=== PATIENT | female | born 1940 | race Two or more races ===

== ENCOUNTER 2016-09-07 23:40 | Emergency (ER) | payer OTHER ==
[~2016-09-07] VITALS: Ht 157.5 cm; Wt 72.6 kg
[2016-09-07 23:58] VITALS: BP 110/86
--- NOTE | 2016-09-08 00:08 | Emergency Room Report ---
History of Present Illness General Chief Complaint: Dyspnea/Respdistress Source: Patient Present Illness HPI This is a 75-year-old female with history of diabetes, hypertension, and a touch of COPD. She presents with increasing shortness of breath the last few days. Worse tonight. Worse with exertion. Better with rest and treatment. Denies any fever chills denies any chest pain. No nausea or vomiting. No chest pain. [place] better after breathing treatment by EMS. Allergies: Coded Allergies: PENICILLINS (Verified Allergy, Unknown, 09/07/16) Patient History Past Medical History: see triage record, old chart reviewed, DM, HTN, asthma Past Surgical History: other Pertinent Family History: none Social History: Denies: smoking Now: No Immunizations: other Reviewed Nursing Documentation: PMH: Agreed, PSxH: Agreed Nursing Documentation-PMH Hx Hypertension: Yes Hx COPD: Yes Hx Diabetes: Yes Review of Systems Eye: Denies: blurred vision, eye pain ENT: Denies: ear pain, nose congestion, throat swelling Respiratory: Reports: shortness of breath, wheezing, Denies: cough Cardiovascular: Denies: chest pain, palpitations Gastrointestinal: Denies: abdominal pain, diarrhea, nausea, vomiting Musculoskeletal: Denies: back pain, joint pain Skin: Denies: rash Neurological: Denies: headache, numbness Endocrine: Denies: increased thirst, increased urine Hematologic/Lymphatic: Denies: easy bruising All Other Systems: negative except mentioned in HPI Physical Exam Vital Signs Date Time Temp Pulse Resp B/P Pulse Ox O2 Delivery O2 Flow Rate FiO2 09/07/16 23:44 98.4 112 28 110/86 100 Simple Mask 6.0 vitals with hypertension Sp02 EP Interpretation: abnormal General Appearance: moderate distress Head: normocephalic, atraumatic Eyes: bilateral eye EOMI, bilateral eye PERRL ENT: hearing grossly normal, normal pharynx Neck: full range of motion, supple, no meningismus Respiratory: chest non-tender, decreased breath sounds, accessory muscle use, rales, wheezing Cardiovascular #1: regular rate, rhythm, no murmur Gastrointestinal: normal bowel sounds, non tender, no mass, no organomegaly, no bruit, non-distended Musculoskeletal: back normal, normal range of motion, swelling - One plus edema Neurologic: alert, oriented x3 Psychiatric: mood/affect normal Skin: warm/dry Medical Decision Making Diagnostic Impression: Primary Impression: Acute respiratory failure with hypoxia Additional Impressions: Acute exacerbation of CHF (congestive heart failure) Qualified Codes: I50.9 - Heart failure, unspecified UTI (urinary tract infection) Qualified Codes: N30.00 - Acute cystitis without hematuria Hyperglycemia due to type 2 diabetes mellitus Qualified Codes: E11.65 - Type 2 diabetes mellitus with hyperglycemia Proteinuria ER Course This patient presents with respiratory distress. She has pulmonary edema and CHF. Never had this problem before. For said her troponin negative. No evidence of PE or pneumonia. No dissection. Patient felt better after Lasix. She diuresed well. Her insurance unable to transfer her in a timely manner. We will admit her here. She will be admitted under the service of Dr. Abarca, who is the hospitalist for [facility]. Dr. Francois is covering for him. Dr. Wall is covering for Dr. Francois. Lab Results Impression labs unremarkable EKG Diagnostic Results Rate: normal, tachycardiac Rhythm: NSR ST Segments: no acute changes Rhythm Strip Diag. Results EP Interpretation: yes Rate: 83 Rhythm: NSR, no PVC's, no ectopy Chest X-Ray Diagnostic Results EP Interpretation: Yes Findings: no consolidation, no effusion, no pneumothorax, other - CHF Number of Views: 1 CT/MRI/US Diagnostic Results CT/MRI/US Diagnostic Results : Imaging Test Ordered: CT chest Impression read by radiologist. Cardiomegaly. Small bilateral pleural effusion. Pulmonary edema. Last Vital Signs Date Time Temp Pulse Resp B/P Pulse Ox O2 Delivery O2 Flow Rate FiO2 09/07/16 23:58 98.4 100 24 110/86 99 Simple Mask 6.0 AGNES TUCKER M.D. Sep 08, 2016 00:08
[2016-09-08] MEDS ORDERED: Albuterol ud Inhalation HHN ONE (00:15)
[2016-09-08] MEDS ORDERED: Solu-MEDROL 125mg Inj IVP ONE (00:15)
[2016-09-08] MEDS ORDERED: Ipratropium 0.02% Inh Soln 2.5ml UD HHN ONE (00:15)
[2016-09-08 00:19] LABS: EOSINOPHILS % (AUTO) 2.4 % (0.0-3.0); LYMPHOCYTES % (AUTO) 23.5 % (20.0-45.0); MEAN CORPUSCULAR HGB CONC 31.4 G/DL (32.0-36.0); MEAN CORPUSCULAR VOLUME 80 FL (80-99); MONOCYTES % (AUTO) 7.2 % (1.0-10.0); NEUTROPHILS % (AUTO) 65.9 % (45.0-75.0); PLATELET COUNT 247 K/UL (150-450); RED BLOOD COUNT 5.27 M/UL (4.20-5.40); RED CELL DISTRIBUTION WIDTH 16.7 % (11.6-14.8); WHITE BLOOD COUNT 15.3 K/UL (4.8-10.8)
[2016-09-08 00:33] LABS: PROTHROMBIN TIME 10.2 SEC (9.30-11.50)
[2016-09-08 00:36] LABS: TROPONIN I < 0.30 ng/mL (<=0.30)
[2016-09-08 00:37] LABS: ALANINE AMINOTRANSFERASE 70 U/L (3-33); ALBUMIN/GLOBULIN RATIO 1.1 (1.0-2.7); ANION GAP 15 (5-15); ASPARTATE AMINO TRANSFERASE 66 U/L (5-40); CALCIUM 9.4 mg/dL (8.6-10.2); CARBON DIOXIDE 26 mEQ/L (20-30); CHLORIDE 106 mEQ/L (98-107); CREATININE 0.9 mg/dL (0.5-0.9); HEMOLYSIS 22; POTASSIUM 3.6 mEQ/L (3.4-4.9); SODIUM 147 mEQ/L (135-145); TOTAL PROTEIN 7.9 g/dL (6.6-8.7)
[2016-09-08 00:47] VITALS: BP 131/51
[2016-09-08 01:09] LABS: APPEARANCE,URINE CLEAR; KETONES,URINE NEGATIVE (NEGATIVE); LEUKOCYTE ESTERASE ,URINE 2+ (NEGATIVE); NITRITE,URINE NEGATIVE (NEGATIVE); PH,URINE 7 (4.5-8.0); PROTEIN,URINE 2+ (NEGATIVE); UROBILINOGEN,URINE NORMAL MG/DL (0.0-1.0)
[2016-09-08 02:26] LABS: BACTERIA,URINE OCCASIONAL /HPF; RBC,URINE 0-2 /HPF (0 - 2); SQUAMOUS EPITHELIAL CELL,UR OCCASIONAL /LPF (NONE/OCC)
[2016-09-08 02:45] LABS: BILIRUBIN,DIRECT 0.3 mg/dL (0.1-0.3); CKMB 2.2 ng/mL (< 3.8)
[2016-09-08 03:00] VITALS: BP 120/47
[2016-09-08] MEDS ORDERED: cefTRIAXone 1 GM in NS 55 ML IVPB ONE (03:00)
[2016-09-08 04:53] VITALS: BP 128/51
[2016-09-08 07:00] VITALS: BP 120/60
[2016-09-08 08:27] VITALS: BP 120/60
--- NOTE | 2016-09-09 12:38 | Cardiology Report ---
APPROVED REPORT EKG Measurement Heart [id number] Normal sinus rhythm Nonspecific ST and T wave abnormality Abnormal ECG
--- NOTE | 2016-09-10 14:06 | Diagnostic Imaging Report ---
Indication: Chest pain Technique: Continuous helical transaxial imaging of the chest was obtained from the thoracic inlet to the upper abdomen during rapid intravenous contrast administration. Arterial phase of enhancement obtained. Coronal 2-D reformats were also obtained and maximum intensity projection images in multiple planes. Study obtained in a Siemens sensation [address] Total Dose length Product (DLP): [address] Dose Index Volume (CTDIvol): 34 mGy Comparison: None Findings: Pulmonary artery is not opacified well enough on this study to exclude pulmonary embolus. The central vessels are probably normal but more distal branches such as second third and fourth order branches are not adequately evaluated. Aorta is moderately calcified. There is cardiomegaly. Small bilateral pleural effusions are present. There is no airspace opacification. There are small groundglass patchy opacities at the lung bases nonspecific in nature. The visualized upper abdomen demonstrates a large hypodensity probably arising from the left kidney. This is likely a cyst but is not completely, comprehensively or adequately evaluated on this study. The cyst measures 8.3 CM as partially visualized. There is a probable cyst in the spleen measuring 1.9 cm. Impression: Relatively nondiagnostic examination for pulmonary embolus. No obvious central pulmonary emboli demonstrated. More distal branches are not evaluated adequately. Atherosclerotic vascular disease Basilar pleural effusions. Nonspecific mild patchy groundglass opacities at both lung bases. Large partially imaged probable cyst in the upper pole left kidney. Splenic cyst [facility] has communicated the preliminary results to the Emergency Department. Their findings are largely concordant with this report. The CT scanner at [facility] is accredited by the [employer] and the scans are performed using protocols designed to limit radiation exposure to as low as reasonably achievable to attain images of sufficient resolution adequate for diagnostic evaluation.
--- NOTE | 2016-09-10 14:06 | Diagnostic Imaging Report ---
Indication: Dyspnea Comparison: None A single view chest radiograph was obtained. Findings: Pulmonary vascular prominence cardiomegaly demonstrated. Aorta is calcified. Bones are osteopenic. Impression: CHF
== END 2016-09-08 09:19 | disposition short-term general hospital (02) ==
LOC: EDBD 23:40 → EMR 09-08 00:05 → EDBEDREQ 09-08 03:56 → EMR 09-08 09:19
DX: J96.01 Acute respiratory failure with hypoxia (principal); I50.9 Heart failure, unspecified; N39.0 Urinary tract infection, site not specified; E11.65 Type 2 diabetes mellitus with hyperglycemia; R06.00 Dyspnea, unspecified; I10 Essential (primary) hypertension; J44.9 Chronic obstructive pulmonary disease, unspecified; R06.02 Shortness of breath; Z88.0 Allergy status to penicillin; R06.2 Wheezing
CPT/HCPCS: 36415; 71010; 71275; 80053; 81003; 82248; 82550; 82553; 83880; 84484; 85025; 85379; 85610; 85730; 93005; 94640; 94664; 99284; J0696; J1940; J2930; Q9967